=== PATIENT | female | born 1985 | race American Indian/Alaskan Native ===

== ENCOUNTER 2018-11-10 18:09 | Emergency (ER) | payer OTHER ==
--- NOTE | 2018-11-10 18:17 | Event Note ---
ED Screening Note Date of service: 11/10/18 Time: 18:14 ED Screening Note: This is a 33 y.o. F. that presents to the ER with pain to right 5th finger x 1 week. LMP 10/20/2018 This initial assessment/diagnostic orders/clinical plan/treatment(s) is/are subject to change based on patients health status, clinical progression and re- assessment by fellow clinical providers in the ED. Further treatment and workup at subsequent clinical providers discretion. Patient/guardian urged not to elope from the ED as their condition may be serious if not clinically assessed and managed. Initial orders include: XR of right fingers
--- NOTE | 2018-11-10 19:02 | XRay Report ---
Right hand-3 views INDICATION: pain and swelling right 5th PIP and metacarpals. COMPARISON: None. IMPRESSION: No acute osseous or soft tissue abnormality. No significant DJD. Signer Name: Rock Valero MD Signed: 11/10/2018 6:58 PM Workstation Name: [id number]
--- NOTE | 2018-11-10 21:54 | Emergency Department Report ---
Upper Extremity - HPI Chief Complaint: Extremity Injury, Upper Stated Complaint: R FINGER PAIN Time Seen by Provider: 11/10/18 18:13 Upper Extremity: Right Little Finger (patient here report that she has swelling to right small finger) Occurred When: 1 Day Mechanism: Unsure Severity: severe Symptoms: Yes Pain with Movement, Yes Deformity, Yes Limited Range of Movement, Yes Swelling, No Numbness, No Weakness, No Bruising/Ecchymosis, No Laceration or Abrasion Other History: Patient had to be called several times on overhead communicator. Patient was outside therefore there was a delayed in her being seen. Nurses report that she had told patient that she needs to be seen the patient went outside. Patient reported that she woke up with right small finger swollen and she is unsure if she slept wrong or hit it while she was sleeping but reports that pain is radiating to her forearm. Reports swelling in without any redness. Denies any fever or chills. Denies any numbness or tingling and reports painful to move right small finger. No medication taken prior to coming to the emergency room. ED Review of Systems ROS: Stated complaint: R FINGER PAIN Other details as noted in HPI Constitutional: denies: chills, fever Respiratory: denies: cough, shortness of breath Cardiovascular: denies: chest pain, palpitations Musculoskeletal: joint swelling, arthralgia. denies: back pain, myalgia Skin: denies: rash Neurological: denies: headache ED Past Medical Hx - Past Medical History Previous Medical History?: No - Surgical History Past Surgical History?: No - Family History Family history: no significant - Social History Smoking Status: Current Every Day Smoker Substance Use Type: Alcohol, Marijuana - Medications Home Medications: Home Medications Medication Instructions Recorded Confirmed Last Taken Type Clindamycin [Clindamycin CAP] 300 mg PO Q8H 10 Days #30 cap 11/11/18 Unknown Rx Ibuprofen [Motrin] 600 mg PO Q8H PRN #12 tablet 11/11/18 Unknown Rx Upper Extremity Exam - Exam General: Vital signs noted. No distress. Alert and acting appropriately. This is a 33-year-old female well-nourished well-developed in no acute distress. Head and Torso: No HEENT Abnormality, No Neck Tenderness, No Chest/Lungs Abnormality, No Abdominal Tenderness, No Back Tenderness Shoulder Exam: Yes Normal Range of Motion in Shoulder, No Shoulder Tenderness, No Clavicle Tenderness, No Shoulder Deformity, No AC Joint Tenderness Arm Exam: No Arm/Humerus Tenderness, No Arm Deformity Elbow: Yes Normal Range of Motion in Elbow, No Elbow Tenderness, No Elbow Deformity Forearm: No Forearm Tenderness, No Forearm Deformity, No Pain with Pronation, No Pain with Supination Wrist: Yes Normal ROM in Wrist, No Wrist Tenderness, No Wrist Deformity, No Snuffbox Tenderness, No Pain with Axial Thumb Compression Hand: Yes Digit Tenderness (right small finger distally tender to palpate.), Yes Normal ROM in Digit(s) (normal range of motion the fingers of right hand but painful to palpate to right small finger), No Hand Tenderness, No Hand Deformity, No Digit(s) Deformity CMS Exam: Yes Normal Distal Pulses, Yes Normal Capillary Refill, Yes Normal Distal Sensation, No Broken Skin ED Course Vital Signs 11/10/18 18:14 Temperature 98.3 F Pulse Rate 94 H Respiratory 18 Rate Blood Pressure 124/83 [Right] O2 Sat by Pulse 100 Oximetry Vital Signs 11/10/18 11/10/18 11/11/18 18:14 23:39 00:39 Temperature 98.3 F Pulse Rate 94 H 66 61 Respiratory 18 20 16 Rate Blood Pressure 124/83 123/81 123/88 [Right] O2 Sat by Pulse 100 97 100 Oximetry - Reevaluation(s) Reevaluation #1: 11/10/18 22:42 Patient with tendinitis to right fifth digit. Started on clindamycin and given [place] 5/325 mg 2 tablets by mouth and finger splint placed. She does have a primary care physician who is Dr. David Meyers was instructed to follow-up in 2 days and she agreed. I also referred patient to orthopedic Dr. Aguilar Reevaluation #2: 11/11/18 00:23 Patient reported that her pain is better. She is able to move all fingers of right hand. Splint placed and she is to follow-up with orthopedic in a primary care doctor - Orthopedic Splinting/Casting Injury #1 Side: right Upper Extremity Injury Location: finger (fifth digits) Upper Extremity Immobilizer: aluminum form splint Additional Comments: Patient good color, sensation and movement and temperature to bilateral upper extremity. ED Medical Decision Making - Radiology Data Radiology results: report reviewed Patient with x-ray of right hand 3 views please see report below. Findings [facility] [address] [place] [address] XRay Report Signed Patient: MONA CLAY MR#: [id number] : 1985 Acct:[id number] Age/Sex: 33 / F ADM Date: 11/10/18 Loc: ED Attending Dr: Ordering Physician: ANA GARCÍA Date of Service: 11/10/18 Procedure(s): XR finger(s) 2+V RT Accession Number(s): [id number] cc: ANA GARCÍA Fluoro Time In Minutes: Right hand-3 views INDICATION: pain and swelling right 5th PIP and metacarpals. COMPARISON: None. IMPRESSION: No acute osseous or soft tissue abnormality. No significant DJD. Signer Name: Rock Valero MD Signed: 11/10/2018 6:58 PM Workstation Name: [id number] Transcribed By: Dictated By: Rock Valero MD Electronically Authenticated By: Rock Valero MD Signed Date/Time: 11/10/181857 DD/ 57 TD/TT: - Medical Decision Making Patient with mild tendinitis to the left fifth digit on right hand. Status post no splint placed. She was given [place] 5/325 2 tablets. Emergency room and helped her pain. X-ray of right hand 3 views without any signs of inflammation or fracture/dislocation. The exam section for physical findings. Reason also given clindamycin 600 mg by mouth in emergency room. I discussed her x-ray, diagnosis and treatment plan. Her primary care physician is Dr. David Meyers and I told her she will need to follow up in 2 days for evaluation or to return to emergency room JAMIE if she develops redness at site that is radiating into forearm, fever or chills, difficulty in moving fingers, increased swelling or pain. He voiced understanding. Her pain is controlled and she is in stable condition and discharged home with friend who is driving. I discussed with her she needs to follow-up with orthopedic doctor in 2 days - Differential Diagnosis fracture versus dislocation, tendinitis, contusion Critical care attestation.: If time is entered above; I have spent that time in minutes in the direct care of this critically ill patient, excluding procedure time. ED Disposition Clinical Impression: Tendinitis of finger of right hand Disposition: DC-01 TO HOME OR SELFCARE Is pt being admited?: No Does the pt Need Aspirin: No Condition: Stable Instructions: Tendinitis (ED) Additional Instructions: Please take medication as prescribed. Return to the emergency room if the condition worsens to include increased pain, swelling, fever or chills, pain radiating to right forearm, difficulty moving fingers, otherwise follow-up with your orthopedic doctor and primary care doctor as discussed. Take medication as prescribed Prescriptions: Clindamycin [Clindamycin CAP] 300 mg PO Q8H 10 Days #30 cap Ibuprofen [Motrin] 600 mg PO Q8H PRN #12 tablet PRN Reason: Pain [facility] [Primary Care Provider] - 11/12/18 DAVID MEYERS MD [Staff Physician] - 11/12/18 JARED AGUILAR MD [Staff Physician] - 11/12/18 Forms: Work/School Release Form(ED)
[2018-11-10] MEDS ORDERED: CLEOCIN PO ONE (22:44)
[2018-11-10] MEDS ORDERED: NORCO 5/325 PO ONE (22:44)
[2018-11-11 00:40] VITALS: BP 123/88
== END 2018-11-11 00:40 | disposition home or self-care (01) ==
LOC: ED 18:09
DX: M65.241 Calcific tendinitis, right hand (principal); F17.200 Nicotine dependence, unspecified, uncomplicated; F12.90 Cannabis use, unspecified, uncomplicated; Z79.899 Other long term (current) drug therapy
CPT/HCPCS: 99283